=== PATIENT | female | born 1950 | race Caucasian/White ===

== ENCOUNTER → 2017-05-18 | Outpatient (CLI) | payer OTHER, MEDICARE | LOC: CIMAGING 10:57 | PROVIDERS: ATTEND Internal Medicine | DX: Z12.31 Encounter for screening mammogram for malignant neoplasm of breast (principal) | CPT/HCPCS: G0202 ==

== ENCOUNTER 2017-11-22 15:02 | Emergency (ER) | payer OTHER, MEDICARE ==
[2017-11-22] MEDS ORDERED: NS 500 ML IV ONE (15:13)
--- NOTE | 2017-11-22 15:22 | CPEKG ---
Heart Rate: 60 RR Interval: 1000 P-R Interval: 156 QRSD Interval: 84 QT Interval: 440 QTC Interval: 440 P [place]: 63 QRS [place]: 32 T Wave [place]: 43 EKG Severity - NORMAL ECG - EKG Impression: SINUS RHYTHM Electronically Signed By: Hanna Holley 22-Nov-2017 15:50:44
[2017-11-22 15:39] LABS: PLATELET COUNT 307 10^3/uL (150-400)
--- NOTE | 2017-11-22 15:44 | EDPHY ---
H & P Time Seen by Provider: 11/22/17 15:13 HPI/ROS: HPI Fainting episodes versus seizure. 66-year-old female by private vehicle with her . This patient reports that last night between the hours of 2:00 a.m. and 4:00 a.m. She had several episodes of an aura sensation described as feeling lightheaded and clammy. She reports that she had a 4th episode and states that she must have fainted at that point because she woke up in a pool of urine. Other than feeling lightheaded and clammy she denies significant palpitations. She denies associated sudden-onset headache, no associated shortness of breath, no associated loss of sensation or weakness in her extremities. No visual changes. She reports for the last month in the afternoon she has been feeling more fatigued and clammy and achy all over. She reports this usually occurs after 4:00 p.m. And she feels better by the late evening hours. She reports that back in June she fell out of [place] while on the beach in [facility] and hit her head. After this episode she had a syncopal event while sitting in a chair. She was never worked up for this. She was seen at the office of her primary care physician, both [facility] and Dr. Juarez and was sent here for further evaluation. ROS: Constitutional: No fever, no chills. As above. Eyes: No discharge. No changes in vision. ENT: No sore throat. No nasal congestion or rhinorrhea. Respiratory: No cough. No shortness of breath. Cardiac: No chest pain, no palpitations. Gastrointestinal: No abdominal pain, no vomiting, no diarrhea. Genitourinary: No hematuria. No dysuria or increased frequency with urination. Musculoskeletal: No back pain. No neck pain. As above. Skin: No rashes. Neurological: She has had some intermittent gradual onset frontal headaches in the afternoon over the last month. No focal weakness or altered sensation. Past medical history: Appendectomy, hypothyroid. Social history: Nonsmoker. Here with her . No alcohol. Physical Exam: General Appearance: Alert, no distress. This patient is responding to questions appropriately and in full sentences. This patient appears well- hydrated and well-nourished. Eyes: Pupils equal and round no pallor or injection. No lid edema, erythema or injection. ENT, Mouth: Mucous membranes are moist. The pharyngeal tissues are unremarkable. No edema or swelling. No asymmetry suggestive of abscess. No erythema or exudates. No tongue lacerations or abrasions. Respiratory: There are no retractions, lungs are clear to auscultation with good air movement bilaterally. Cardiovascular: Regular rate and rhythm. No murmur appreciated. Gastrointestinal: Abdomen is soft and nontender, no masses, bowel sounds normal. No focal tenderness at McBurney's point. No Gordon sign. Rectal exam: Normal tone. No gross blood. Brown stool. Neurological: Motor sensory function is grossly intact. Cranial nerves are normal. Gait is normal. Skin: Warm and dry, no rashes. Musculoskeletal: Neck is supple and nontender. Extremities are symmetrical. All joints range without pain or impingement. Psychiatric: No agitation. No depression. Database: EKG: EKG time is 3:20 p.m.; EKG shows a narrow complex normal sinus rhythm with a ventricular rate of 60. The GA, QRS, QT intervals are within normal limits. There are no ST-T wave changes indicative of ischemic or injury pattern. No evidence of right heart strain. No evidence of WPW, Brugada syndrome, hypertrophic cardiomyopathy. Interpreted by me. Imaging: CT scan of head without contrast: Procedures: Emergency department course: Vital signs reviewed. She is moderately hypertensive. Vital signs otherwise normal. IV placed. She was placed on a manager maritime. She was started on IV normal saline with 500 cc to be given over the next hour. EKG obtained and reviewed by myself. 4:40 p.m., patient re-evaluated. Resting comfortably at this time. Discussed results of emergency department workup. BUN elevated. Has been elevated in the past and appears close to baseline today. Patient is more anemic than she has been in the past. Hemoccult stool sent. 5:00 p.m., patient re-evaluated. Hemoccult stool testing negative. She has been asymptomatic during her emergency department course. She feels comfortable going home and is requesting discharge. She declines admission for further observation. I will have her follow up with her primary care physician for repeat of her blood work. Particularly her CBC and chemistry panel. I will also refer her to Neurology to be evaluated for her symptoms which may be secondary to a seizure disorder. I feel that cardiac etiology of syncope is unlikely. She feels comfortable with this plan. She understands for follow- up. Return to emergency department precautions reviewed with her and her . All of their questions were answered. The patient was discharged home in good condition. Differential Diagnosis: The differential diagnosis on this patient includes but is not limited to seizure versus vasovagal syncope. Cardiac arrhythmia, pulmonary embolism, subarachnoid hemorrhage, CVA, acute coronary syndrome unlikely. This represents a partial list of diagnoses considered. These considerations are based on history, physical exam, past history, reassessment and diagnostic testing. Smoking Status: Never smoked Constitutional: Initial Vital Signs Temperature (C) 37 C 11/22/17 15:08 Heart Rate 69 11/22/17 15:08 Respiratory Rate 18 11/22/17 15:08 Blood Pressure 159/103 H 11/22/17 15:08 O2 Sat (%) 93 11/22/17 15:08 O2 Delivery Mode Room Air Allergies/Adverse Reactions: Sulfa (Sulfonamide Antibiotics) Allergy (Verified 11/22/17 15:06) Home Medications: Medication Instructions Recorded Citalopram 11/22/17 Levothyroxine 11/22/17 Medical Decision Making - Diagnostics Imaging Results: Imaging Impressions Head CT 11/22/17 15:32 Impression: 1. Mild atrophy. 2. No acute hemorrhage, hydrocephalus, or mass effect. 3. Mild Cerebrovascular atherosclerosis. 4. No definite acute infarct. 5. No epidural or subdural hematoma. Findings and recommendations discussed with Emergency Department physician, Hanna Holley MD at 16:26 hour, 11/22/2017. Final report concurs with initial preliminary interpretation. - Data Points Laboratory Results: Laboratory Results 11/22/17 15:30 11/22/17 15:30 11/22/17 11/22/17 11/22/17 16:45 16:04 15:30 WBC RBC Hgb Hct MCV MCH MCHC RDW Plt Count MPV Neut % (Auto) Lymph % (Auto) [place] % (Auto) Eos % (Auto) Baso % (Auto) Nucleat RBC Rel Count Absolute Neuts (auto) Absolute Lymphs (auto) Absolute Monos (auto) Absolute Eos (auto) Absolute Basos (auto) Absolute Nucleated RBC Immature Gran % Immature Gran # Sodium 136 mEq/L mEq/L (135-145) Potassium 4.6 mEq/L mEq/L (3.3-5.0) Chloride 102 mEq/L mEq/L (97-110) Carbon Dioxide 24 mEq/l mEq/l (22-31) Anion Gap 10 mEq/L mEq/L (8-16) BUN 32 mg/dL H mg/dL (7-23) Creatinine 1.0 mg/dL mg/dL (0.6-1.0) Estimated GFR 55 Glucose 89 mg/dL mg/dL (70-100) Calcium 9.4 mg/dL mg/dL (8.5-10.4) Troponin I < 0.012 ng/mL ng/mL (0.000-0.034) TSH 1.420 uIU/mL uIU/mL (0.465-4.680) Urine Color YELLOW Urine Appearance CLEAR Urine pH 5.0 (5.0-7.5) Ur Specific [place] 1.010 (1.002-1.030) Urine Protein NEGATIVE (NEGATIVE) Urine Ketones NEGATIVE (NEGATIVE) Urine Blood 3+ H (NEGATIVE) Urine Nitrate NEGATIVE (NEGATIVE) Urine Bilirubin NEGATIVE (NEGATIVE) Urine Urobilinogen NEGATIVE EU EU (0.2-1.0) Ur Leukocyte Esterase NEGATIVE (NEGATIVE) Urine RBC 25-50 /hpf H /hpf (0-3) Urine WBC 1-3 /hpf /hpf (0-3) Ur Epithelial Cells TRACE /lpf /lpf (NONE-1+) Urine Glucose NEGATIVE (NEGATIVE) Stool Occult Bld Scrn NEGATIVE (NEGATIVE) Ethyl Alcohol < 10 mg/dL mg/dL (0-10) 11/22/17 15:30 WBC 10.44 10^3/uL H 10^3/uL (3.80-9.50) RBC 4.27 10^6/uL 10^6/uL (4.18-5.33) Hgb 11.3 g/dL L g/dL (12.6-16.3) Hct 34.9 % L % (38.0-47.0) MCV 81.7 fL fL (81.5-99.8) MCH 26.5 pg L pg (27.9-34.1) MCHC 32.4 g/dL g/dL (32.4-36.7) RDW 14.6 % % (11.5-15.2) Plt Count 307 10^3/uL 10^3/uL (150-400) MPV 9.1 fL fL (8.7-11.7) Neut % (Auto) 68.2 % % (39.3-74.2) Lymph % (Auto) 18.5 % % (15.0-45.0) [place] % (Auto) 12.3 % % (4.5-13.0) Eos % (Auto) 0.4 % L % (0.6-7.6) Baso % (Auto) 0.3 % % (0.3-1.7) Nucleat RBC Rel Count 0.0 % % (0.0-0.2) Absolute Neuts (auto) 7.13 10^3/uL H 10^3/uL (1.70-6.50) Absolute Lymphs (auto) 1.93 10^3/uL 10^3/uL (1.00-3.00) Absolute Monos (auto) 1.28 10^3/uL H 10^3/uL (0.30-0.80) Absolute Eos (auto) 0.04 10^3/uL 10^3/uL (0.03-0.40) Absolute Basos (auto) 0.03 10^3/uL 10^3/uL (0.02-0.10) Absolute Nucleated RBC 0.00 10^3/uL 10^3/uL (0-0.01) Immature Gran % 0.3 % % (0.0-1.1) Immature Gran # 0.03 10^3/uL 10^3/uL (0.00-0.10) Sodium Potassium Chloride Carbon Dioxide Anion Gap BUN Creatinine Estimated GFR Glucose Calcium Troponin I TSH Urine Color Urine Appearance Urine pH Ur Specific [place] Urine Protein Urine Ketones Urine Blood Urine Nitrate Urine Bilirubin Urine Urobilinogen Ur Leukocyte Esterase Urine RBC Urine WBC Ur Epithelial Cells Urine Glucose Stool Occult Bld Scrn Ethyl Alcohol Medications Given: Discontinued Medications Sodium Chloride (Ns) 500 mls @ 1,000 mls/hr IV EDNOW ONE PRN Reason: Protocol Stop: 11/22/17 15:42 Last Admin: 11/22/17 15:28 Dose: 500 mls Departure - Departure Disposition: Home, Routine, Self-Care Clinical Impression: Syncope, Possible seizure Condition: Good Instructions: New-Onset Seizure in Adults (ED), Syncope (ED) Additional Instructions: Read and follow provided instructions. Follow-up with your primary care physician in 1-2 days for re-evaluation. You should have your complete blood cell count as well as your basic metabolic panel repeated. I want to make sure you are not becoming more anemic and that your kidneys are functioning well. Follow-up with Neurology, Dr. Reed of his partners, for evaluation of a possible seizure disorder. You should not drive until cleared by Neurology. Keep well hydrated. Avoid strenuous physical activity. Return to the emergency department for fainting, chest pain, seizure activity or other serious concerns. Referrals: Arlene Amador MD [Primary Care Provider] - As per Instructions Angel Reed MD [Medical Doctor] - As per Instructions
[2017-11-22 17:20] VITALS: BP 143/85
== END 2017-11-22 17:20 | disposition home or self-care (01) ==
DX: R55 Syncope and collapse (principal); E86.9 Volume depletion, unspecified
CPT/HCPCS: G0480

== ENCOUNTER → 2017-12-11 | Outpatient (CLI) | payer OTHER, MEDICARE | LOC: CIMAGING 14:14 | PROVIDERS: ATTEND Internal Medicine | DX: J98.4 Other disorders of lung (principal); J90 Pleural effusion, not elsewhere classified | CPT/HCPCS: 71046-PO ==

== ENCOUNTER → 2017-12-13 | Outpatient (CLI) | payer OTHER, MEDICARE ==
--- NOTE | 2017-12-18 22:32 | CPEEG ---
[f rep st] ELECTROENCEPHALOGRAM ELECTROENCEPHALOGRAM REPORT DATE OF STUDY: 12/18/2017 HISTORY: The patient is a 66-year-old woman who has a history of some episodes of syncope or loss of consciousness, but no definitive overt seizures, looking for any evidence of clinical seizure activi ty with EEG evaluation. She has recently been found to have pneumonia. INDICATION: Evaluate for epileptiform activity and focal findings. DESCRIPTION OF THE RECORD: This is a technically adequate study obtained following partial sleep dep rivation. Background consists of an 11 hertz posterior predominant and symmetric alpha rhythm which attenuates on eye opening. Frontal central beta activity is present. Photic stimulation produces sy mmetric driving responses at some frequencies. Hyperventilation produces symmetric buildup. There a re no areas of focal slowing and no epileptiform discharges. This is a normal awake EEG recording. /[id number]/MODL
== END ==
LOC: FCPNEURO 14:01
PROVIDERS: ATTEND Internal Medicine
DX: G60.9 Hereditary and idiopathic neuropathy, unspecified (principal); T67.1XXA Heat syncope, initial encounter

== ENCOUNTER 2017-12-18 19:35 | Inpatient (IN) | payer OTHER, MEDICARE ==
--- NOTE | 2017-12-18 21:32 | EDPHY ---
H & P Smoking Status: Never smoked Time Seen by Provider: 12/18/17 21:30 HPI/ROS: Chief complaint. Elevated D-dimer HPI. Patient is a 66-year-old female presents emergency department with elevated D-dimer. Several weeks ago she had syncope and was found to have a pneumonia. She was seen in the office today because she has had 1 week of cough. Patient tells me she had temperature to 100 degrees last night. She had been treated with Levaquin for left lower lobe consolidation with a fusion. She was seen in the office today with left pleural effusion and new right- sided pleural effusion. She has a D-dimer in the office av 19. She saw Dr. Mt Marks who called and discussed the case. She needs a CT for pulmonary embolus. He feels she may be discharged if no PE and they will see the patient in the office tomorrow again and discussed antibiotics and outpatient thoracentesis. Patient understands this plan. She has no leg symptoms ROS Constitutional. Fever to 100 degrees Eyes. no problems with vision ENT. no sore throat, no nasal drainage Cardiovascular. no chest pain Respiratory. Cough Abdominal. no abdominal pain, no nausea/vomiting, no diarrhea . no problems urinating MS. no calf pain/swelling, no neck/back pain, no joint pain Skin. no rash Lymph. no swollen glands Neuro. no headache, no dizziness, no difficulty walking or with speech (Jose Blood) Past Medical/Surgical History: Appendectomy, hypothyroid (Jose Blood) Social History: , nonsmoker, no alcohol (Jose Blood) Physical Exam: General Appearance: Alert well-developed female mild distress vital signs stable Eyes: Pupils equal and round no pallor or injection. ENT, Mouth: Mucous membranes are moist. Respiratory: Decreased breath sounds on the left Cardiovascular: Regular rate and rhythm. Gastrointestinal: Abdomen is soft and nontender, no masses, bowel sounds normal. Neurological: Awake and alert, sensory and motor exams grossly normal. Skin: Warm and dry, no rashes. Musculoskeletal: Neck is supple nontender. Extremities symmetrical, full range of motion. Psychiatric: Patient is oriented X 3, there is no agitation. (Jose Blood) Constitutional: Initial Vital Signs Temperature (C) 36.7 C 12/18/17 19:35 Heart Rate 90 12/18/17 19:35 Respiratory Rate 16 12/18/17 19:35 Blood Pressure 127/85 H 12/18/17 19:35 O2 Sat (%) 94 12/18/17 19:35 O2 Delivery Mode Room Air Allergies/Adverse Reactions: Sulfa (Sulfonamide Antibiotics) Allergy (Verified 12/19/17 09:51) Other-Enter Comments Home Medications: Medication Instructions Recorded Levothyroxine [Synthroid 100 mcg 100 mcg PO MWF 12/18/17 (*)] Acetaminophen [Tylenol 325mg (*)] 325 mg PO DAILY PRN 12/19/17 Citalopram Hydrobromide [Celexa] 40 mg PO DAILY 12/19/17 Herbals/Supplements -Info Only 1 ea PO DAILY 12/19/17 Medical Decision Making - Diagnostics Imaging Results: Imaging Impressions Chest X-Ray 12/19/17 00:00 Impression: No pneumothorax after left-sided thoracentesis. Procedures: IV normal saline 1 L of fluid. (Jose Blood) ED Course/Re-evaluation: Patient remained stable in the emergency department. (Jose Blood) 1200AM: Patient signed over to me at 11:00 p.m. Shift change follow-up CT scan. She had elevated D-dimer. Her CT scan shows no evidence of PE however does show bilateral pleural effusions and a pericardial effusion as well as hepatic mass. I went spoke with the patient. She reports to me she has been having fever intermittently on and off for months. Additionally she reports increasing shortness of breath. Given her pericardial effusion, bilateral pleural effusions, liver mass, to be admitted to the hospital. Her D-dimer is very concerning that this elevated no evidence of PE. I have updated the patient. She agrees for admission. EKG interpretation by me on record in [employer] system. Impression time of EKG 3, sinus rhythm rate of 82, no acute ischemic change. No ST elevation no ST depression. No micro amplitude no signs of cardiac arrhythmia. Subtle T- wave abnormalities inferior leads. Troponin point care 0.01 Blood work otherwise noted. Patient need to be admitted for large pericardial effusion, bilateral pleural effusions and hepatic mass. 1232: Spoke with the hospitalist service Dr. Laughlin, Agrees to admit. Updated patient. (Raymundo Camarena) Differential Diagnosis: Likely the elevated D-dimer is due to the patient's pneumonia and pleural effusion. However the D-dimer is elevated at 17 and I have considered pulmonary embolus. (Jose Blood) Care Turn Over: Care to Dr. Camarena at 9:45 p.m. (Jose Blood) - Data Points Laboratory Results: Laboratory Results 12/18/17 20:30 12/18/17 20:30 Medications Given: Acetaminophen (Tylenol) 650 mg PO Q4HRS PRN PRN Reason: Pain, Mild/Fever, Can Take PO Stop: 06/17/18 01:41 Last Admin: 12/19/17 22:37 Dose: 650 mg Sodium Chloride (Ns) 1,000 mls @ 75 mls/hr IV CONT LEXIE Stop: 06/17/18 01:41 Last Admin: 12/19/17 16:22 Dose: 1,000 mls Multivitamins (Tab-A-Sandra) 1 each PO DAILY LEXIE Stop: 06/17/18 08:59 Last Admin: 12/19/17 08:32 Dose: Not Given Discontinued Medications Sodium Chloride (Ns) 1,000 mls @ 0 mls/hr IV EDNOW ONE; Wide Open PRN Reason: Protocol Stop: 12/18/17 21:34 Last Admin: 12/18/17 21:39 Dose: 1,000 mls Sodium Chloride (Ns) 1,000 mls @ 0 mls/hr IV ONCE ONE PRN Reason: Wide Open Stop: 12/18/17 23:47 Last Admin: 12/19/17 00:53 Dose: Not Given Ibuprofen (Motrin) 400 mg PO ONCE ONE Stop: 12/19/17 23:49 Last Admin: 12/19/17 23:53 Dose: 400 mg Departure - Departure Disposition: [facility] Inpatient Acute Clinical Impression: Pleural effusion, Pericardial effusion, Liver mass Condition: Good
[2017-12-18] MEDS ORDERED: NS 1,000 ML IV ONE ×2 (21:33→23:46)
[2017-12-18] MEDS ORDERED: IOPAMIDOL (ISOVUE-300) 100 ML BTL ONE (23:51)
--- NOTE | 2017-12-18 23:55 | CPEKG ---
Heart Rate: 82 RR Interval: 732 P-R Interval: 156 QRSD Interval: 82 QT Interval: 376 QTC Interval: 439 P [place]: 45 QRS [place]: 23 T Wave [place]: -26 EKG Severity - BORDERLINE ECG - EKG Impression: SINUS RHYTHM EKG Impression: BORDERLINE T ABNORMALITIES, INFERIOR LEADS Electronically Signed By: Raymundo Camarena 19-Dec-2017 07:29:17
[2017-12-18 23:56] LABS: INR 1.19 (0.83-1.16); PROTIME(PATIENT) 15.3 SEC (12.0-15.0)
[2017-12-18 23:57] LABS: CREATINE KINASE 34 IU/L (0-156)
[2017-12-19 00:04] LABS: PLATELET COUNT 294 10^3/uL (150-400)
[2017-12-19] MEDS ORDERED: ONDANSETRON DISINTEGRATING 4 MG TAB PO PRN (01:42)
[2017-12-19] MEDS ORDERED: LORazepam 2 MG/ML INJ IVP PRN (01:42)
[2017-12-19] MEDS ORDERED: ONDANSETRON 4 MG/2 ML VIAL IVP PRN (01:42)
[2017-12-19] MEDS ORDERED: diphenhydrAMINE 25 MG CAP PO PRN (01:42)
--- NOTE | 2017-12-19 04:24 | GHP ---
[f rep st] HISTORY AND PHYSICAL DATE OF ADMISSION: 12/19/[address] Mt Marks earlier today. SOURCE: Patient provides history, appears reliable. ER record was reviewed. EMR is currently down. Unable to assess previous records at this time. Patient appears reliable. Case discussed with ED provider. CHIEF COMPLAINT: Abnormal D-dimer, cough, and fever. HISTORY OF PRESENT ILLNESS: This is a very pleasant 66-year-old female with past medical history significant for hypothyroidism and anxiety, otherwise relatively healthy, who presents to the emergency department today after evaluation by her PCP and laboratory studies that revealed an abnormal D-dimer of greater than 17. The patient was referred to the emergency department for further evaluation and rule out of PE. The patient has been having intermittent fevers, chills, and night sweats ongoing for the past 2 months since October. The patient reports that she has had low-grade fevers, 99-100s. She has had a persistent nonproductive cough. She has had some mild weight loss related to a decreased appetite and decreased intake. She denies any nausea, vomiting, or abdominal pain. She has chronic abdominal distention. She denies any diarrhea, melena, hematochezia. The patient was recently treated with 5-day course of Levaquin for left lower lobe consolidation. Patient had additional followup with findings consistent with a left pleural effusion and new right-sided pleural effusion. REVIEW OF SYSTEMS: GENERAL: Positive for fevers, chills, and night sweats. Decreased appetite and weight loss. SKIN: Patient denies any rash or sores. ENT: Patient reports chronic rhinorrhea related to allergies. No sore throat. Some hoarseness. EYES: Patient denies any acute changes in vision. Does wear glasses. CV: Patient reports some central chest tightness with bilateral shoulder blade pain and occasional palpitations, worse with dyspnea. RESPIRATORY: Positive for nonproductive cough. Shortness of breath with dyspnea on exertion. The patient denies any lower extremity edema. GI: Negative for nausea, vomiting, or diarrhea. No abdominal pain, but patient does note she has chronic abdominal bloating, which is about baseline. : No dysuria or hematuria. 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 MUSCULOSKELETAL: Patient reports intermittent myalgias. No joint pains. NEURO: Patient reports occasional headache in October with onset of her fever. She had severe headaches , which were quite unusual, but none that severe since that time. No numbness, tingling, or focal deficits. PSYCH: Patient with history of anxiety, depression. She denies any SI or HI. Remainder review of systems negative except as noted above. ALLERGIES: To sulfa. HOME MEDICATIONS: Levothyroxine, citalopram. PAST MEDICAL HISTORY: Significant for hypothyroidism. PAST SURGICAL HISTORY: Significant for appendectomy, partial thyroidectomy, colonoscopy. FAMILY HISTORY: Father related to liver cancer. Mother with history of MS, CAD. Multiple family members with Alport disease including her 2 sons. They are otherwise healthy. SOCIAL HISTORY: Patient is . She lives with her . She does not smoke or use any illicit drugs, or marijuana. She drinks occasional wine 3-4 times per week, but since becoming ill, she has not really had any interest in alcohol intake. CODE STATUS: Full. PHYSICAL EXAMINATION: Upon arrival to the emergency department, temperature 36.7, heart rate 90, respiratory rate 16, blood pressure 127/85, O2 saturation 94% on room air. GENERAL: No acute distress. Very pleasant, adult female, who is resting quietly on bed. HEAD: Normocephalic, atraumatic. EYES: Extraocular muscles are intact. Pupils equal, round, reactive to light bilaterally and symmetric. No scleral icterus or conjunctival injection. ENT: Mucous membranes appear moist. No oropharyngeal erythema or exudates. Dentition intact. No nasal discharge. CV: Regular rate and rhythm. No murmurs, rubs, or gallops appreciated. No chest wall tenderness to palpation. RESPIRATORY: Unlabored breathing. Lungs are clear to auscultation bilaterally. No wheezes. Some rales bibasilarly with quite diminished breath sounds bibasilarly. Abdomen is distended, but soft. No palpable masses. Positive bowel sounds. Nontender to palpation. No rebound, guarding, or masses appreciated. : No suprapubic tenderness to palpation. No Moore catheter in place. EXTREMITIES: No cyanosis, clubbing, or edema is appreciated. Patient with 5/5 strength, upper and lower extremities, and sits up independently. NEURO: Grossly nonfocal. No facial drooping. Moves all extremities. Awake, alert, and oriented x3. PSYCH: Patient is slightly anxious, but very cooperative, pleasant. Thought process, content, and questions are all appropriate. LABORATORY STUDIES: 1. WBC 7.44, H and H of 17.5 and 55.9, platelet count is 294. 2. Sodium is 139, potassium 4.4, chloride is 100, CO2 is 24, BUN is 30, creatinine is 1.4, and glucose is 79. Lactic acid 0.7. PT is 15.3, INR is 1.19 , PTT is 38.3. 3. LFTs revealed that patient has a total protein of 6.2, albumin 3.3, total bilirubin 0.3, ALT is 26, AST is 15, alkaline phosphatase is 98. CK is 34, CK- MB 0.7. BTNP is 440. Magnesium 2.2. 4. EKG, reviewed myself, shows sinus rhythm in the 80s. Borderline T-wave abnormalities and flattening in the inferior leads. No acute ST elevations. QTc is 439. 5. CT angio report reviewed. Imaging unavailable at this time. Negative for any evidence of pulmonary embolism, pericardial effusions. Note stated bilateral pleural effusions, left greater than right. Left lower lobe consolidation, pneumonia versus compressive atelectasis secondary to pleural effusion. A 10 cm mass in left hepatic lobe with consideration for additional imaging as the patient's clinical condition will allow. Consider imaging with multiphase CT or MRI. ASSESSMENT AND PLAN: Pleasant, 66-year-old female with history of hypothyroidism and anxiety, who presents to the emergency department for followup of abnormal D-dimer at primary care physician's with a several-month history of intermittent fevers, chills, sweats, and weight loss. 1. Pericardial effusion noted on CT. We will plan to obtain echocardiogram in the morning. Patient will be monitored closely on PCU floor. She does report a history of intermittent episodes of syncope and dyspnea on exertion. She has not had any orthopnea or lower extremity edema. or PND. Echo is ordered for the morning. 2. Pleural effusions bilaterally. CT also with findings of a liver mass. Consideration for exudative effusions versus transudative echo as noted above for further cardiac evaluation. The patient will be left n.p.o. Consideration for potentially further evaluation of pleural fluid with thoracentesis. We will await echocardiogram results and defer decision to day hospitalist. 3. Liver mass. Further imaging recommended. Discussed with the patient. 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 Discussed with the patient potential for continuing with IV fluid and consideration to proceed ahead with a CT with contrast in the morning; however, we will need to reassess her renal function, given the risks of contrast-induced nephropathy. She is amenable to waiting on this, if needed, and further workup to focus on her pericardial effusion and pleural effusions. BMP has been ordered for the morning for reassessment of patient's renal function. She will additionally received more IV fluids at a slower rate. She did receive a liter in the emergency department and does not have any worsening respiratory symptoms or evidence of external third spacing. CT with contrast has been ordered pending repeat BMP and approval by day hospitalist. If renal function does not permit, consider MRI study. Differential diagnosis including abscess versus malignancy. She does have a family history of liver cancer in her father. The patient does not have any chronic issues with alcohol consumption. Further evaluation with abdominal imaging will be required, but see discussion above regarding patient's renal function and contrast. 4. Fever. Patient has been afebrile since arrival to the emergency room. She does not have a leukocytosis. Suspect related to the patient's other medical ongoing issues as noted above. No blood cultures at this time. 5. Hypoalbuminemia, likely declined in setting of patient's ongoing medical issues. She has also had declined oral intake. Continue to monitor her CMP. 6. Polycythemia, likely related to some component of hemoconcentration. She is receiving IV fluids as noted above. 7. Chronic medical issues. Alport disease. Monitoring renal function very closely. 8. Hypothyroidism. Continue levothyroxine replacement when med rec available. 9. Anxiety and depression. Resume patient's citalopram. 10. Fluid, electrolyte, nutrition. Patient will receive additional IV fluid hydration at gentle rate with normal saline. Electrolytes will be monitored and replaced if needed. The patient's diet restricted to ice chips and sips at this time pending imaging studies as they return. 11. Prophylaxis. SCDs. Holding anticoagulation pending development of plan for tomorrow, which may include procedures. 12. Code status is full. DISPOSITION: Patient admitted to inpatient status on the PCU floor for close cardiac monitoring in setting of pericardial effusion. Anticipate greater than a 2-midnight stay. /[id number]/MODL MTDD
[2017-12-19] MEDS: ACETAMINOPHEN 325 MG TAB PO PRN ×3 (08:29→22:37)
[2017-12-19] MEDS: MULTIVITAMINS 1 EACH TAB PO SCH (08:32)
[2017-12-19 10:34] LABS: PLATELET COUNT 504 10^3/uL (150-400)
[2017-12-19 10:40] LABS: INR 1.21 (0.83-1.16); PROTIME(PATIENT) 15.5 SEC (12.0-15.0)
--- NOTE | 2017-12-19 12:38 | ECHO ---
[email or web address] [address] [address] Main: [phone] Fax: Transthoracic Echocardiogram Name: ANETA GARCIA MR#: [id number] Study Date: 12/19/2017 Study Time: 09:22 AM Date of : 1950 Age: 66 year(s) Height: 165.1 cm (65 in.) Weight: 66.23 kg (146 lb.) BSA: 1.73 m2 Gender: Female Examination: Echo Indication: Pericardial Effusion, cough Image Quality: Adequate Contrast: Requested by: Josephine Laughlin BP: 127 mmHg/93 mmHg Heart Rate: Rhythm: Indication: Pericardial Effusion, cough Procedure Staff Statistics Manager: Mandy Oakley [facility] Reading Physician: Guillaume Orellana MD Requesting Provider: Conclusions: Normal size left ventricle. No LV hypertrophy. Normal global systolic LV function. EF is 72 %. No regional wall motion abnormality. Normal diastolic LV function. Normal size right ventricle. Normal RV function. The left atrium is normal in size. The right atrium is normal in size. The mitral valve is normal in appearance and function. Trivial mitral valve regurgitation. No mitral stenosis is present. The aortic valve is normal in appearance and function. Mild aortic cusp calcification is noted. Mild aortic valve regurgitation is present. No aortic valve stenosis is present. The pulmonic valve is normal in appearance and function. Trivial pulmonic valve regurgitation. The aorta is normal. Normal size aortic root measuring 3.1 cm. Normal size ascending aorta measuring 3.4 cm. The IVC is normal sized. Small pericardial effusion. No echocardiographic evidence of hemodynamic compromise. The patient has a small pericardial effusion with a large left pleural effusion. No echocardiographic findings suggestive of tamponade. Incidentally noted is a mass just superior to the liver. Consider abdominal ultrasound or CT to evalutat further. Patient: ANETA GARCIA Study Date: 12/19/2017 Page 1 of 3 09:22 AM Measurements: Chambers Valvular Assessment AV/MV Valvular Assessment TV/PV Normal Normal Normal Name Value Range Name Value Range Name Value Range Ao Jaymie (MM): 3.1 cm (2.2 cm-3.7 AV Vmax: 1.85 m/s (1 m/s-1.7 TR Vmax: 2.47 mm/s ( - ) cm) m/s) TR PGmax: 24 mmHg ( - ) IVSd (2D): 0.9 cm (0.6 cm-1.1 AV maxP mmHg ( - ) syst. PAP: 29 mmHg ( - ) cm) LVOT Vmax: 1.25 m/s (0.7 m/s-1.1 PV Vmax: 0.80 m/s (0.6 m/s-0.9 LVDd (2D): 3.5 cm (3.9 cm-5.3 m/s) m/s) cm) MV E Vmax: 0.76 m/s ( - ) PV PGmax: 3 mmHg ( - ) LVDs (2D): 2.5 cm (2.1 cm-4 MV A Vmax: 0.85 m/s ( - ) cm) MV E/A: 0.89 ( - ) LVPWd (2D): 0.8 cm ( - ) LVEF (BP): 72 % (>=55 %) RVDd(2D): 3.3 cm (1.9 cm-3.8 cmmm) Continued Measurements: Chambers Valvular Assessment AV/MV Valvular Assessment TV/PV Name Value Name Value Name Value LADs Lon.3 cm MV DecTime: 211 m/s CVP (est.): 5 mmHg LA Area: 18.3 cm2 MV E' Septal: 0.08 m/s LA Volume: 49 ml MV E/E' Septal: 9.80 LA Volume Index: 28.3 ml/m2 MV E/E' Lateral: 10.10 RA Area: 13.5 cm2 Additional Vessels Name Value Ao Ascendin.4 cm Findings: Left Ventricle: Normal size left ventricle. No LV hypertrophy. Normal global systolic LV function. EF is 72 %. No regional wall motion abnormality. Normal diastolic LV function. Right Ventricle: Normal size right ventricle. Normal RV function. Left Atrium: The left atrium is normal in size. Right Atrium: The right atrium is normal in size. Mitral Valve: The mitral valve is normal in appearance and function. Trivial mitral valve regurgitation. No mitral stenosis is present. Aortic Valve: The aortic valve is normal in appearance and function. Mild aortic cusp calcification is noted. Mild aortic valve regurgitation is present. No aortic valve stenosis is present. Tricuspid Valve: The tricuspid valve is normal in appearance and function. Trivial to mild tricuspid valve regurgitation. Right ventricular systolic pressure measures 29mmHg. The pulmonary artery pressure is normal. Pulmonic Valve: The pulmonic valve is normal in appearance and function. Trivial pulmonic valve regurgitation. Aorta: The aorta is normal. Normal size aortic root measuring 3.1 cm. Normal size ascending aorta measuring 3.4 cm. IVC: The IVC is normal sized. Pericardium: Small pericardial effusion. No echocardiographic evidence of hemodynamic compromise. There is a Patient: ANETA GARCIA Study Date: 12/19/2017 Page 2 of 3 09:22 AM pleural effusion present. Exam Comments: Incidental finding: Large mass superior to liver. (No Signature Object) Patient: ANETA GARCIA Study Date: 12/19/2017 Page 3 of 3 09:22 AM [id number]
--- NOTE | 2017-12-19 14:16 | ASMTCASEMG ---
Living Arrangements What is your living Answers: With Spouse arrangement? Who do you live with? Type Of Residence What kind of residence do Answers: House you live in? Discharge Plan Comments Coordination Status Comments Notes: Pt is a 66 y/o female admitted with pericardial/bilateral pleural effusions and a liver mass. Pt will most likely d/c without any needs. No therapies ordered at this time. CM available for changes. Plan: Independent Date Signed: 12/19/2017 02:16 PM Electronically Signed By:CHARLIE Pizarro
[2017-12-19] MEDS: NS 1,000 ML IV SCH (16:22)
[2017-12-19] MEDS ORDERED: LIDOCAINE 1% 300 MG/30 ML SDV ONE (16:25)
--- NOTE | 2017-12-19 18:20 | HOSPPROG ---
Hospitalist Progress Note Assessment/Plan: Prolonged service, direct patient care, in addition to the time originally spent by admitting provider Dr. Josephine Laughlin in her history and physical, at bedside with patient and , for 35 min, from 3:05-3:40 p.m., addressing the following: -Physical exam demonstrates reduced air movement in the left base, negative aegophony, faint inspiratory crackles in the left mid posterior segment, heart rhythm is regular, abdomen is soft, palpable liver, nontender, alert awake oriented x3 -patient is clearly symptomatic from her pleural effusions, of uncertain etiology, and she would benefit from a therapeutic as well as diagnostic thoracentesis, will be performed this afternoon -patient reports neurologic symptoms over the last 3 months consisting of unwitnessed loss of consciousness as well as possible seizure, she did have a noncontrast head CT which demonstrated no intracranial masses, she did schedule follow-up with Neurology but is not on any antiepileptic medications -given the patient's likelihood of malignancy, will get brain MRI for staging purposes to rule out nidus of intracranial metastases and seizure foci -discussed with Dr. Jacqueilne Machuca, will hold on formal oncology consultation given that the type of potential underlying malignancy may be more urologic in nature -urinalysis with blood, creatinine initially 1.4, 0.9 on repeat after IV fluids , continue IV fluids and recheck creatinine level in a.m. Given history of Alport syndrome as well as high contrast load -echocardiogram demonstrating small pericardial effusion, not significant for tap, no diastolic dysfunction, normal ejection fraction, hold off on Cardiology consultation and recommend outpatient serial echocardiogram, suspect that this may have been a reactive effusion in the setting of her underlying unifying diagnosis -discussed patient's 10 cm liver lesion with her, at the time of my discussion it was not clear that the lesion was a hemangioma, but after leaving the patient 's room and discussing with Dr. Alek Navarro, he reports to me this is a hemangioma and should not be biopsied -he also reports to me that the patient has a 2 cm solid kidney mass, and I have discussed this with the Urology service who will consult with the patient in the morning and discuss her surgical options for partial nephrectomy for diagnostic and therapeutic purposes -patient with leukocytosis of unclear etiology, will repeat in a.m. Objective: Vital Signs Temp Pulse Resp BP Pulse Ox 37.3 C 87 13 149/99 H 93 12/19/17 12:00 12/19/17 15:18 12/19/17 15:18 12/19/17 15:18 12/19/17 15:18 Laboratory Results 12/19/17 08:00 12/19/17 09:34 12/18/17 12/19/17 12/20/17 05:59 05:59 05:59 Intake Total 1600 Output Total 2 1000 Balance 1598 -1000 PT 15.5 SEC (12.0-15.0) H 12/19/17 08:00 INR 1.21 (0.83-1.16) H 12/19/17 08:00 ICD10 Worksheet Patient Problems: Problems Problem Status Onset Pleural effusion Acute Pericardial effusion Acute Liver mass Acute
[2017-12-19] MEDS ORDERED: IBUPROFEN 200 MG TAB PO ONE (23:48)
[2017-12-20 04:40] LABS: PLATELET COUNT 442 10^3/uL (150-400)
[2017-12-20] MEDS: MULTIVITAMINS 1 EACH TAB PO SCH (08:35)
[2017-12-20] MEDS ORDERED: Herbals/Supplements -Info Only PO SCH (09:00)
[2017-12-20] MEDS ORDERED: CITALOPRAM 20 MG TAB PO SCH (09:00)
[2017-12-20] MEDS ORDERED: IBUPROFEN 200 MG TAB PO PRN (09:23)
[2017-12-20] MEDS ORDERED: LIDOCAINE 4%/MENTHOL 1% PATCH TD SCH (09:30)
[2017-12-20] MEDS: NS 1,000 ML IV SCH (10:08)
--- NOTE | 2017-12-20 10:58 | GCON ---
[f rep st] CONSULTATION DATE OF CONSULTATION: 12/20/2017 REASON FOR CONSULT: Left renal mass. HISTORY OF PRESENT ILLNESS: This is a pleasant 66-year-old female who presented to the emergency liya m with an abnormal D-dimer found at her primary care office. The patient reports that she has been h aving intermittent fever, chills, and night sweats for the last couple of months, along with low-grad e temperatures around 99-100 and persistent nonproductive cough. Has not had much of an appetite and therefore has had some mild weight loss. She is denying gross hematuria or flank pain. Upon workup , she was found to have a left pleural effusion, a right pleural effusion, a liver mass which has bee n determined to likely be a hemangioma, along with a 2 cm left lower pole renal mass. REVIEW OF SYSTEMS: 10-point review of systems is negative, except as mentioned in the HPI with the a ddition of history of loss of consciousness in the last couple of months for unknown reasons. ALLERGIES: Sulfa. HOME MEDICATIONS: Levothyroxine, citalopram. PAST MEDICAL HISTORY: Hypothyroidism, Alport syndrome. SURGICAL HISTORY: Appendectomy, partial thyroidectomy, colonoscopy. FAMILY HISTORY: is in room and is a Dr. Patel urology patient. Multiple other family member s with Alport disease. Father had liver cancer. Mother, history of coronary artery disease and SD. SOCIAL HISTORY: , lives with her . Denies smoking or illicit drug use. Occasional al cohol use. PHYSICAL EXAM: GENERAL: This is a well-developed, well-nourished female in no acute distress. HEEN T: Normocephalic, atraumatic. Extraocular movements intact. NECK: Supple. No lymphadenopathy. T rachea midline. RESPIRATORY: Normal breath sounds. No accessory respiratory muscle use. CARDIAC: Regular rate and rhythm. LOWER EXTREMITIES: No edema. No obvious JVD. GI: Abdomen was soft, non distended, nontender to palpation. No hepatosplenomegaly. : No CVA tenderness. No bladder diste ntion. No bladder tenderness to palpation. INTEGUMENT: Normal skin color. No obvious rashes or le sions. NEUROLOGIC: Patient was alert and oriented. Affect appropriate to situation. MUSCULOSKELET AL: She was supine, moving upper extremities without difficulty. VITALS: Blood pressure 138/87, he art rate 79, respiratory rate 18, O2 97 on room air, temperature 36.7. LABS: Her white blood cell count is 13.71, hemoglobin 10.1, hematocrit 31.3, platelets 442. Regional Business Manager ry: Sodium 139, potassium 4.4, chloride 108, carbon dioxide 23, anion gap 8, BUN 16, creatinine 0.9, glucose 93, calcium 8.7. Urinalysis: Positive for blood. She had a cytology sent on pleural effus ion yesterday pending results. CT of abdomen and pelvis done, reviewed personally, which shows known pleural effusion along with a s olid-appearing 2 x 1.8 cm left lower pole lesion of the kidney. No other lesions noted. No stones. No hydronephrosis. She has several lesions in the liver, including an 88 x 78 mm solid mass deemed likely to be hemangioma by Radiology. ASSESSMENT: Left renal mass, pleural effusion of unknown etiology. PLAN: Discussed with the patient that she has a concerning mass for renal cell carcinoma on the left kidney. Options for this would be repeat imaging, ablation, biopsy, partial or total nephrectomy. Recommend that the workup for the pleural effusion be completed and hopefully minimize before pursuin g surgical options. She is interested in a partial nephrectomy, and I think that this is reasonable. Discussed timeframe of likely doing this in the next couple of weeks, again once the pleural effusi on and further workup has been completed. The patient is comfortable with this plan and does not wis h to mesa into surgery without being otherwise more healthy and stable. At this point, we will plan on seeing the patient in our office for followup and likely partial nephrectomy planning. /[id number]/MODL
[2017-12-20] MEDS ORDERED: GADOBUTROL 10 ML VIAL IVP ONE (11:42)
[2017-12-20] MEDS ORDERED: IOPAMIDOL (ISOVUE-300) 100 ML BTL ONE (13:20)
--- NOTE | 2017-12-20 15:24 | PDMN ---
Medical Necessity Medical necessity: est los>2mn for pericardial effusion, bilateral pleural effusions, liver mass; admit for close cardiac monitoring, further imaging, consider thoracentesis; comorbid Alport disease, recent hx fever, chills, wt loss x several mos.; per order 12/20/17 and H&P 12/19/17
--- NOTE | 2017-12-20 15:54 | GCON ---
[f rep st] CONSULTATION PULMONARY CONSULTATION DATE OF CONSULTATION: 12/20/2017 HISTORY OF PRESENT ILLNESS: This patient is a 66-year-old female who was admitted to [facility] on 12/19/19 18 after presenting to the emergency department with an elevated D-dimer. She has been having a vari ety of issues over the past several months of uncertain etiology. In June 2017, she fell off a h ammock while in [place] and hit her head but had no workup at that time. She subsequently apparently had a syncopal episode while seated in a chair. The details of that are unknown to me at this time. On 11/22/2017, however, she presented to the emergency department after experiencing several episode s of presumed syncope. She had been feeling quite fatigued and clammy over the past several months p rior to that visit, and the day of the visit, she was awake in bed in the middle of the night and fee ling worse and woke up incontinent of urine with presumed syncopal episode. She had a head CT at [facility] t time, which was negative. There were thoughts of anemia causing her symptoms at the time, and she subsequently went and had additional workup by her primary care provider. On 12/10/2017, she had ext ensive lab workup, including negative ARMANDO, rheumatoid factor, SSA and SSB, but a CRP was elevated at greater than 200 with a sedimentation rate of about 50. She continued to have difficulty and was dev eloping shortness of breath of a gradual onset to where she could not speak in full sentences and sub sequently was given a chest x-ray, which showed consolidation and pleural effusion on the left side. She was diagnosed with pneumonia and given Levaquin. She continued to feel poorly and did not impro ve and had subjective fevers as an outpatient, but then presented to the emergency department as desc ribed above as the chest x-ray showed ongoing effusion, and a D-dimer was checked, which was positive . Subsequently, she underwent a CT angiogram that ruled out pulmonary embolism but did show bilateral pleural effusions, as well as pericardial effusion. There was also a 10 cm hepatic abnormality, as well as a 2 cm renal abnormality. Subsequent abdominal CT scan showed the liver to be a hemangioma, though the 2 cm right renal mass was highly suspicious for carcinoma. She has been seen by Urology f or this issue of her kidney, and a partial nephrectomy was suggested, and she is considering that now . REVIEW OF SYSTEMS: Otherwise negative. PAST MEDICAL HISTORY: Includes anxiety, depression, and hypothyroidism. PAST SURGICAL HISTORY: Includes appendectomy, partial thyroidectomy, and colonoscopy. SOCIAL HISTORY: She is a nonsmoker. No IV drug use. She does drink occasional wine but has not bee n drinking much recently. FAMILY HISTORY: Includes liver cancer and coronary artery disease. There are also multiple family m embers with Alport's disease, including her 2 sons. MEDICATIONS: At this time include Tylenol, Celexa, Benadryl, Motrin, Synthroid, Ativan p.r.n., Zofra n, normal saline. PHYSICAL EXAMINATION: VITAL SIGNS: Blood pressure was 139/99, heart rate of 81, respirations 18, ox ygen saturation 91% on room air. GENERAL: She is a very pleasant woman in no apparent distress and able to speak in full sentences without using accessory muscles for breathing. HEENT: Pupils are eq ually round and reactive to light, nonicteric and noninjected. Mucous membranes are moist, without e rythema or exudate. NECK: Supple, without adenopathy or jugular vein distention. LUNGS: Breath so unds were somewhat diminished bilaterally at the bases, but they were equal, and there was no wheezin g or rales or rubs. HEART: Had a regular rate and rhythm, with somewhat diminished sounds, but I di d not hear any rubs there either and no murmurs. ABDOMEN: Soft, nontender, nondistended, without he patosplenomegaly. EXTREMITIES: No clubbing, cyanosis, or edema. NEUROLOGIC: Nonfocal, including cr anial nerves and deep tendon reflexes. SKIN: Warm and dry, without evidence of rash. OBJECTIVE DATA: A CT scan was performed today at my request, which shows improvement in her bilatera l pleural effusions. There is some thickening of the pleura, but I do not see any obvious lung mariusz s. The official read is still pending at this time. Her white count on admission was only 7.4, is n ow 13.7, with a hematocrit of 32 and stable, platelets of 442. Basic metabolic panel was completely normal. Urinalysis showed some hematuria, but was otherwise negative. Her pleural fluid from yester day shows a pH of 7.0, 1123 white cells, 2104 red cells, 54% lymphocytes, 28% neutrophils, total prot ein 3.9, LDH 299, glucose of 87. Her serum total protein was 5.7, and serum LDH was 319. LFTs were otherwise normal. ASSESSMENT/PLAN: Pleural effusion. I am concerned particularly for renal cell carcinoma, which can metastasize to the lung, as well as the pleural surface. Cytology is still pending on this specimen, and that may provide the answer at this time. I was initially concerned about empyema because of th e story of pneumonia, but my suspicion for pneumonia is actually quite low for her, even at the time she received her antibiotics. I think she had more pleural effusion at that time and very few sympto ms to support a pneumonia diagnosis. I do not feel that a chest tube is required at this time or any additional drainage depending on her clinical course. If she were to reaccumulate substantially, sh e may ultimately require chest tube drainage and even pleurodesis, but I think the diagnosis remains in question at this time. I also discussed the options of a partial nephrectomy and suggested that t his was probably worth her while, that she should be able to tolerate this reasonably well and might provide the diagnosis that we are looking for related to her pleural and pericardial effusions. Rachell cardial effusion is small but is clearly abnormal and probably too small to tap at this time. If she is to be discharged today, she can always follow up with me as an outpatient to assist with further management of this problem. /[id number]/MODL
[2017-12-20 16:36] VITALS: BP 148/108
--- NOTE | 2017-12-20 17:10 | PDDCSUM ---
Discharge Summary Discharge Summary: DISCHARGE SUMMARY FOLLOW-UP ITEMS: 1. Repeat chest x-ray PA and lateral in 1 week 2. Repeat CBC, ESR, CRP, metabolic profile in 1 week 3. Schedule outpatient partial nephrectomy 4. Dr. Patel to follow up cytology from thoracentesis as well as thoracentesis culture DATE OF ADMISSION: 12/18/2017 DATE OF DISCHARGE: 12/20/2017 DISCHARGE DIAGNOSES: 1. Acute bilateral pleural effusions 2. Acute small pericardial effusion 3. 2 cm left lower pole solid mass of the kidney, likely renal cell carcinoma 4. 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 Acute kidney injury CONSULTATIONS: Pulmonary, Urology PROCEDURES / IMAGING: Thoracentesis removing 1 L of exudate of effusion Brain MRI demonstrating no metastatic disease CT of the chest after thoracentesis demonstrating persistent bilateral effusions , left 1 does not have enough fluid for chest tube, no overt metastatic disease noted CT of the abdomen demonstrating 2 cm left kidney solid mass, hemangioma in the liver, leiomyoma of the uterus, ovarian cysts CHIEF COMPLAINT: Acute fatigue, dyspnea, subjective fevers, night sweats SUBJECTIVE: Patient is feeling well at time discharge, she feels like she has better strength PHYSICAL EXAM ON DISCHARGE: Systolic blood pressure 120-140, heart rate 80-90, afebrile overnight, satting well on room air, alert awake oriented x3, reduced air movement in the bilateral bases, inspiratory crackles in the mid posterior segments, heart rhythm is regular, abdomen is soft nontender nondistended, she has hepatomegaly LABS ON DISCHARGE: Creatinine 0.9, potassium 4.4, white blood cell count 90858, hemoglobin 10.1, pleural fluid pH 7, pleural glucose 89, pleural LDH 300, serum LDH 320 comma pleural protein 3.9, serum protein 5.7 HOSPITAL COURSE BY PROBLEM: 1. Acute bilateral pleural effusions. The patient's dyspnea is most likely secondary to her pleural effusions, and the patient was seen consultation by Dr. Corey Patel after she underwent a 1 L left-sided diagnostic and therapeutic paracentesis. Effusions appeared to be exudative with a pH of 7 with a Gram stain positive for white blood cells but no specific organism. Although it is possible that she has parapneumonic effusions status post treatment for possible pneumonia approximately 1 week ago, Dr. Patel and I both suspect that these are malignant effusions given her new diagnosis of probable renal cell carcinoma. She is at risk for fluid reaccumulation and she will have repeat chest x-ray next week prior to her follow-up appointment in the Pulmonary Clinic. We reassessed her pleural effusions with follow-up chest CT to determine whether they contain enough fluid for chest tube, and did not appear that they did. I suspect that her persistent leukocytosis is secondary to her ongoing pleural effusions and probable underlying malignancy. She does not seem to have any evidence of specific infection and we will not prescribe antibiotics at this time. 2. Small pericardial effusion. Present on echocardiogram, no evidence of tamponade physiology, unclear etiology although suspect inflammatory nature. The patient is experiencing some left-sided focal chest discomfort which is either secondary to her pericardial effusion or pleural effusions. She has responded well to moderate strength ibuprofen and Tylenol. She will continue this medication at discharge. She was recently evaluated for rheumatologic issues, and her 12/10/2017 ARMANDO is normal, rheumatoid factors normal, but she did have an elevated ESR 50 and a CRP of 200. Will repeat her ESR and CRP next week with CBC and metabolic profile prior to seeing Pulmonary Clinic. 3. Likely renal cell carcinoma. Patient with a 2 cm mass in the left kidney lower pole, seen in consultation by Urology, partial nephrectomy offered to patient to be scheduled as an outpatient after her pleural effusions have been reassessed in the pulmonary clinic. The patient and her have received the news well, and they would like to pursue partial nephrectomy. The patient did undergo brain MRI to rule out metastatic disease, and her brain MRI was normal. She did not have any other evidence of metastatic disease on her CTs of chest abdomen pelvis, although I do suspect that she has metastatic disease in her lungs with resultant metastatic malignant pleural effusions, but this has yet to be confirmed. I have discussed her case with Oncology, and they have recommended initial treatment through Urology, then outpatient Oncology can be consulted moving forward. 4. Hemangioma. Large, no indication for biopsy or drainage, which is actually contraindicated. Asymptomatic, no further workup indicated. 5. Acute kidney injury. Most likely secondary to poor oral intake in the setting of above, received IV normal saline and resolved. Creatinine peaked to 1.4. 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 Regardless, would advise careful monitoring of her renal function with procedures moving forward. DISCHARGE MEDICATIONS: Please see official discharge medication reconciliation sheet in chart , Tylenol and ibuprofen as needed. DISCHARGE INSTRUCTIONS: Please have chest x-ray and labs next week, follow up in Pulmonary Clinic thereafter and schedule outpatient urology visit with subsequent nephrectomy. TIME SPENT: Greater than 30 minutes were spent on direct patient care, as well as discharge planning and preparation.
[2017-12-20] MEDS ORDERED: PATCH REMOVAL 1 EA PATCH TD SCH (21:00)
[2017-12-21] MEDS ORDERED: LEVOTHYROXINE 100 MCG TAB PO SCH (08:00)
== END 2017-12-20 17:28 | disposition home or self-care (01) | DRG 187 ==
LOC: F2W 12-19 01:15
PROVIDERS: ADMIT Family Medicine; ATTEND Family Medicine
PROC: 0W9B3ZX Drainage of Left Pleural Cavity, Percutaneous Approach, Diagnostic (ICD-10-PCS; principal; 2017-12-19)
DX: J90 Pleural effusion, not elsewhere classified (principal); I31.3 Pericardial effusion (noninflammatory); N17.9 Acute kidney failure, unspecified; D18.03 Hemangioma of intra-abdominal structures; C64.1 Malignant neoplasm of right kidney, except renal pelvis; N28.89 Other specified disorders of kidney and ureter; E03.9 Hypothyroidism, unspecified; Q87.81 Alport syndrome; Z87.01 Personal history of pneumonia (recurrent); Z85.820 Personal history of malignant melanoma of skin
CPT/HCPCS: A9585; Q9967

== ENCOUNTER → 2017-12-18 | Outpatient (CLI) | payer OTHER, MEDICARE | LOC: CIMAGING 11:25 | PROVIDERS: ATTEND Internal Medicine | DX: J90 Pleural effusion, not elsewhere classified (principal) | CPT/HCPCS: 71046-PO ==

== ENCOUNTER → 2017-12-26 | Outpatient (CLI) | payer OTHER, MEDICARE | LOC: CIMAGING 09:08 | PROVIDERS: ATTEND Internal Medicine | DX: J90 Pleural effusion, not elsewhere classified (principal) | CPT/HCPCS: 36415-PO; 71046-PO ==

== ENCOUNTER → 2018-01-03 | Outpatient (CLI) | payer OTHER, MEDICARE | LOC: CIMAGING 09:17 | PROVIDERS: ATTEND Internal Medicine Pulmonary Disease | DX: J90 Pleural effusion, not elsewhere classified (principal); Z98.890 Other specified postprocedural states | CPT/HCPCS: 71046-PO ==

== ENCOUNTER → 2018-01-04 | Outpatient (CLI) | payer OTHER, MEDICARE ==
[~2018-01-04] MED LIST: GADOBUTROL 10 ML VIAL IVP ONE
== END ==
LOC: FIMAGING 14:28
PROVIDERS: ATTEND Internal Medicine Hematology & Oncology
DX: N28.89 Other specified disorders of kidney and ureter (principal); I31.3 Pericardial effusion (noninflammatory); D18.03 Hemangioma of intra-abdominal structures
CPT/HCPCS: 74183; A9585

== ENCOUNTER → 2018-02-04 | Outpatient (CLI) | payer OTHER, MEDICARE | LOC: BHLMT 13:15 | PROVIDERS: ATTEND Internal Medicine | DX: I31.3 Pericardial effusion (noninflammatory) (principal) | CPT/HCPCS: 93306-PO ==

== ENCOUNTER → 2018-06-14 | Outpatient (CLI) | payer OTHER, MEDICARE | LOC: CIMAGING 14:09 | PROVIDERS: ATTEND Internal Medicine | DX: Z12.31 Encounter for screening mammogram for malignant neoplasm of breast (principal) ==

== ENCOUNTER → 2018-08-06 | Outpatient (CLI) | payer OTHER, MEDICARE | LOC: CIMAGING 10:17 | PROVIDERS: ATTEND Internal Medicine | DX: N18.9 Chronic kidney disease, unspecified (principal); Z90.5 Acquired absence of kidney | CPT/HCPCS: 76770-PO; 99000-PO ==